=== PATIENT | male | born 1935 | race Caucasian/White ===

== ENCOUNTER 2019-01-04 21:24 | Emergency (ER) | payer MEDICARE ==
[~2019-01-04] VITALS: Ht 180.3 cm; Wt 88.5 kg
[2019-01-04] MEDS ORDERED: METF-494 PO (21:45)
[2019-01-04] MEDS ORDERED: PANT40TA4 PO (21:45)
[2019-01-04] MEDS ORDERED: ASPI81TA31 PO (21:45)
[2019-01-04] MEDS ORDERED: TAMS-3 PO (21:45)
[2019-01-04] MEDS ORDERED: CYAN-51 PO (21:45)
[2019-01-04] MEDS ORDERED: SIMV20TA6 PO (21:45)
[2019-01-04] MEDS ORDERED: LISI1TAB32 PO (21:45)
[2019-01-04] MEDS ORDERED: SUMA100T16 PO (21:45)
[2019-01-04] MEDS ORDERED: SUCR1TAB PO (21:45)
[2019-01-04] MEDS ORDERED: ALLO300T2 PO (21:45)
[2019-01-04] MEDS ORDERED: METO-356 PO (21:45)
[2019-01-04] MEDS ORDERED: ELUX100T PO (21:45)
[2019-01-04] MEDS ORDERED: MECLIZINE HCL 25 MG TABLET PO ONE (22:00)
[2019-01-04 22:08] LABS: BASOPHILS % (AUTO) 0.2 % (0.0-2.0); EOSINOPHILS % (AUTO) 0.2 % (0.0-7.0); HEMATOCRIT 41.8 % (36.7-47.1); HEMOGLOBIN 13.8 g/dL (12.5-16.3); LYMPHOCYTES # (AUTO) 0.5 K/uL (20.0-40.0); LYMPHOCYTES % (AUTO) 7.1 % (20.5-51.5); MEAN CORPUSCULAR HEMOGLOBIN 30.3 uug (23.8-33.4); MEAN CORPUSCULAR HGB CONC 33 g/dL (32.5-36.3); MEAN CORPUSCULAR VOLUME 91.7 fL (73.0-96.2); MONOCYTES # (AUTO) 0.3 K/uL (2.0-10.0); MONOCYTES % (AUTO) 5.2 % (0.0-11.0); NEUTROPHILS # (AUTO) 5.7 K/uL (1.8-8.9); NEUTROPHILS % (AUTO) 87.3 % (38.5-71.5); PLATELET COUNT (AUTO) 157 K/uL (152-348); RED BLOOD CELL COUNT(AUTO) 4.55 MIL/uL (4.06-5.63); WHITE BLOOD COUNT (AUTO) 6.5 K/uL (3.6-10.2)
[2019-01-04] MEDS ORDERED: MECLIZINE HCL 25 MG TABLET ONE (22:09)
[2019-01-04 22:18] LABS: CREATININE 1.1 mg/dL (0.6-1.3); POTASSIUM 3.5 mmol/L (3.5-5.1)
[2019-01-04 22:24] LABS: BILIRUBIN,DIRECT 0.2 mg/dL (0.0-0.2); BILIRUBIN,TOTAL 0.8 mg/dL (0.2-1.0); TOTAL PROTEIN, SERUM 7.3 g/dL (6.4-8.2)
--- NOTE | 2019-01-04 23:13 | NUR ---
Pt provided urine sample, sent to lab.
[2019-01-04 23:16] LABS: *BILIRUBIN,URIN NEGATIVE (NEGATIVE); *BLOOD, URINE NEGATIVE (NEGATIVE); *CLARITY,URINE CLEAR (CLEAR); *COLOR,URINE YELLOW (YELLOW); *KETONES,URINE TRACE (NEGATIVE); *UROBILINOGEN,URINE 0.2 E.U./dl (NORMAL); LEUKOCYTE ESTERASE ,URINE NEGATIVE (NEGATIVE); NITRITE, URINE NEGATIVE (NEGATIVE); UGLUCOSE NEGATIVE (NEGATIVE)
[2019-01-04 23:36] LABS: BACTERIA,URINE NONE SEEN /HPF (NONE SEEN); RBC,URINE 0-3 /HPF (0-3); SQUAMOUS EPITHELIAL CELL,UR NONE SEEN /HPF (NONE SEEN)
[2019-01-05 00:01] VITALS: BP 148/78
--- NOTE | 2019-01-05 00:01 | NUR ---
Patient discharged to home in stable conditon. Written and verbal after care instructions given. Patient verbalizes understanding of instructions. patient alert and oriented x4. patiet self ambulatory with steady gait. Exit care package and personal belongings taken home with the patient at discharge.
== END 2019-01-05 00:02 | disposition home or self-care (01) ==
LOC: ER 21:26
DX: H81.10 Benign paroxysmal vertigo, unspecified ear (principal); R11.2 Nausea with vomiting, unspecified; K21.9 Gastro-esophageal reflux disease without esophagitis; E11.9 Type 2 diabetes mellitus without complications; E78.00 Pure hypercholesterolemia, unspecified; Z79.82 Long term (current) use of aspirin; Z79.899 Other long term (current) drug therapy
CPT/HCPCS: 36415; 70030-TC; 70450; 71045; 85025; 87086; 93005; A4663; J8597